=== PATIENT | female | born 1960 | race Caucasian/White ===

== ENCOUNTER → 2017-12-28 | Outpatient (CLI) | payer MEDICARE ==
[~2017-12-28] MED LIST: ABILIFY5 MG PO; ACTOS30 MG PO; ALDACTONE 25MG25 M1 PO; AMITRIPTYLINE H25 M1 PO; ASPIRIN 81M81 MG/TA2 PO; DEPAKOTE 250MG250 MG PO; DIOVAN 160MG160 MG PO; MONOKET10 MG PO; NATURAL E400 IU PO; NEURONTIN300 MG/CAP PO; NITROSTAT0.4 MG/TAB SL; NORVASC 10MG10 MG; OMEGA-3 FISH1000 MG PO; PAXIL40 MG PO; PRANDIN1 MG PO
== END ==
LOC: MC.RAD 09:50
DX: R92.0 Mammographic microcalcification found on diagnostic imaging of breast (principal); Z98.82 Breast implant status

== ENCOUNTER → 2018-04-07 | Outpatient (CLI) | payer MEDICARE | LOC: COL.CAR 13:26 | DX: R00.2 Palpitations (principal); Z53.8 Procedure and treatment not carried out for other reasons ==

== ENCOUNTER 2018-04-18 07:01 | Outpatient (CLI) | payer MEDICARE | END 2018-04-18 09:28 | disposition home or self-care (01) | LOC: COL.CAR 07:01 | DX: I47.1 Supraventricular tachycardia (principal); I27.20 Pulmonary hypertension, unspecified; E78.5 Hyperlipidemia, unspecified; E66.9 Obesity, unspecified; R06.00 Dyspnea, unspecified; I08.1 Rheumatic disorders of both mitral and tricuspid valves; I50.30 Unspecified diastolic (congestive) heart failure; Z79.82 Long term (current) use of aspirin; Z88.6 Allergy status to analgesic agent; Z88.8 Allergy status to other drugs, medicaments and biological substances; Z88.1 Allergy status to other antibiotic agents; Z88.2 Allergy status to sulfonamides; Z91.048 Other nonmedicinal substance allergy status ==

== ENCOUNTER 2021-12-23 08:03 | Day surgery (SDC) | payer MEDICARE ==
[~2021-12-23] VITALS: Ht 165.1 cm; Wt 113.5 kg
[~2021-12-23 08:03] MED LIST changes: +ABILIFY20 MG PO; -ABILIFY5 MG PO; +CLEOCIN HCL300 MG PO; +COREG 6.256.25 MG/TA PO; +LIORESAL 1010 MG/TAB PO; +VITAMIN C500 MG PO; +[UNRECOGNIZED DRUG - OTHER]; +[UNRECOGNIZED DRUG - OTHER]
[2021-12-23] MEDS ORDERED: FLEXERIL 1010 MG/TAB PO (08:48)
[2021-12-23] MEDS ORDERED: ZOCOR 20MG20 MG PO (08:48)
[2021-12-23] MEDS ORDERED: PROZAC 20MG20 MG PO (08:49)
[2021-12-23] MEDS ORDERED: LASIX 40MG TABL40 MG PO (08:50)
[2021-12-23] MEDS ORDERED: PROZAC40 MG PO (08:50)
[2021-12-23] MEDS ORDERED: BIOTIN10000 MC1 PO (08:51)
[2021-12-23] MEDS ORDERED: B-121000 MCG PO (08:51)
[2021-12-23] MEDS ORDERED: PROAIR HFA0.09 MG/AC IH (08:52)
[2021-12-23] MEDS ORDERED: TYLENOL 500MG500 MG PO (08:52)
[2021-12-23] MEDS ORDERED: NASONEX SPRAY17 GM NS (08:52)
[2021-12-23] MEDS ORDERED: LYRICA 150MG C150 MG PO (08:53)
[2021-12-23 08:58] VITALS: BP 131/67; PULSE 59; TEMP 97.9
[2021-12-23] MEDS ORDERED: CLEOCIN HCL300 MG PO (11:32)
[2021-12-23 11:38] VITALS: BP 142/64; PULSE 61
--- NOTE | 2021-12-23 11:40 | NUR ---
Pt is back from phlebotomy lab assistant after loop removal. Pt is alert and oriented, pwd, resp reg and unlabored. dressing to incision is clean, dry and intact. Pt's daughter is with her. call light in reach.
[2021-12-23 11:45] VITALS: BP 142/57; PULSE 51
[2021-12-23 12:00] VITALS: BP 134/63; PULSE 58
[2021-12-23 12:15] VITALS: BP 134/77; PULSE 56
--- NOTE | 2021-12-23 12:55 | NUR ---
Discharge instructions given to pt.Pt verbalizes understanding.Pt escorted out via wheelchair by this nurse.
== END 2021-12-23 15:28 | disposition home or self-care (01) ==
LOC: COL.CAR 08:03
DX: Z45.09 Encounter for adjustment and management of other cardiac device (principal)
CPT/HCPCS: J1644; J2250; J3010; J3370

== ENCOUNTER → 2023-11-23 | Outpatient (CLI) | payer MEDICARE ==
[~2023-11-23] MED LIST changes: +B-121000 MCG PO; +BIOTIN10000 MC1 PO; +FLEXERIL 1010 MG/TAB PO; +LASIX 20MG TABL20 MG PO; +LASIX 40MG TABL40 MG PO; +LYRICA 150MG C150 MG PO; +NASONEX SPRAY17 GM NS; +PROAIR HFA0.09 MG/AC IH; +PROZAC 20MG20 MG PO; +PROZAC40 MG PO; +TYLENOL 500MG500 MG PO; +ZOCOR 20MG20 MG PO
== END ==
LOC: MC.RAD 09:49
DX: N64.89 Other specified disorders of breast (principal); Z98.890 Other specified postprocedural states
CPT/HCPCS: A4648